=== PATIENT | male | born 1980 | race Caucasian/White ===

== ENCOUNTER → 2016-05-14 | Outpatient (CLI) | payer MEDICAID | LOC: WI 07:29 | PROVIDERS: ATTEND Nurse Practitioner Family | DX: N63 Unspecified lump in breast (principal) | CPT/HCPCS: 76642 ==

== ENCOUNTER 2016-05-17 00:10 | Emergency (ER) | payer MEDICAID ==
[2016-05-17 02:17] VITALS: BP 122/74
--- NOTE | 2016-05-17 04:10 | ER Document Report ---
Doctor's Note Notes: 05/17/16 04:09 The patient eloped before walked into the room. The nurse initially thought he had want to the bathroom the patient never returned. I never saw evaluate the patient. I never had an opportunity to speak with the patient.
== END 2016-05-17 04:00 | disposition left against medical advice (07) ==
LOC: ER 00:10
DX: Z53.21 Procedure and treatment not carried out due to patient leaving prior to being seen by health care provider (principal)

== ENCOUNTER → 2016-05-18 | Outpatient (CLI) | payer MEDICAID ==
[2016-05-18 11:34] LABS: ABSOLUTE BASOPHILS # (AUTO) 0.1 10^3/uL (0.0-0.2); ABSOLUTE EOSINOPHILS # (AUTO) 0.4 10^3/uL (0.0-0.6); ABSOLUTE LYMPHOCYTES (AUTO) 4.1 10^3/uL (0.5-4.7); ABSOLUTE MONOCYTES (AUTO) 1.2 10^3/uL (0.1-1.4); ABSOLUTE NEUT (AUTO) 7.2 10^3/uL (1.7-8.2); BASOPHILS % (AUTO) 0.5 % (0-2); HEMATOCRIT 41.8 % (37.9-51.0); HGB HCT DIFFERENCE 0.2; MEAN CORPUSCULAR HEMOGLOBIN 29.9 pg (27.0-33.4); MEAN CORPUSCULAR HGB CONC 33.5 g/dL (32.0-36.0); MEAN CORPUSCULAR VOLUME 89 fl (80-97); RED BLOOD COUNT 4.69 10^6/uL (4.35-5.55); RED CELL DISTRIBUTION WIDTH 13.7 % (11.5-14.0); SEGMENTED NEUTROPHILS % (AUTO) 55.5 % (42-78); WHITE BLOOD COUNT 12.9 10^3/uL (4.0-10.5)
[2016-05-18 11:53] LABS: ALANINE AMINOTRANSFERASE 18 U/L (21-72); ALBUMIN 4.3 g/dL (3.5-5.0); ALKALINE PHOSPHATASE 62 U/L (38-126); ANION GAP 11 (5-19); ASPARTATE AMINO TRANSFERASE 16 U/L (17-59); BILIRUBIN,TOTAL 0.5 mg/dL (0.2-1.3); BLOOD UREA NITROGEN 5 mg/dL (7-20); CARBON DIOXIDE 31 mmol/L (22-30); CHLORIDE 99 mmol/L (98-107); CREATININE RESULT 0.86 mg/dL (0.52-1.25); GLUCOSE 95 mg/dL (75-110); POTASSIUM 3.6 mmol/L (3.6-5.0); SODIUM 140.9 mmol/L (137-145); TOTAL PROTEIN 7.6 g/dL (6.3-8.2)
== END ==
LOC: LAB 11:15
PROVIDERS: ATTEND Nurse Practitioner Family
DX: Z00.00 Encounter for general adult medical examination without abnormal findings (principal); L72.3 Sebaceous cyst
CPT/HCPCS: 36415; 80053; 85025

== ENCOUNTER → 2017-08-09 | Outpatient (CLI) | payer MEDICAID ==
[2017-08-09 18:35] LABS: ABSOLUTE EOSINOPHILS # (AUTO) 0.2 10^3/uL (0.0-0.6); ABSOLUTE LYMPHOCYTES (AUTO) 3.5 10^3/uL (0.5-4.7); ABSOLUTE MONOCYTES (AUTO) 0.8 10^3/uL (0.1-1.4); ABSOLUTE NEUT (AUTO) 5.4 10^3/uL (1.7-8.2); BASOPHILS % (AUTO) 0.4 % (0-2); EOSINOPHILS % (AUTO) 2.2 % (0-6); HEMATOCRIT 41.3 % (37.9-51.0); MEAN CORPUSCULAR HEMOGLOBIN 29.9 pg (27.0-33.4); MEAN CORPUSCULAR HGB CONC 33.9 g/dL (32.0-36.0); MEAN CORPUSCULAR VOLUME 88 fl (80-97); MONOCYTES % (AUTO) 8.2 % (3-13); PLATELET COUNT 260 10^3/uL (150-450); RED BLOOD COUNT 4.68 10^6/uL (4.35-5.55); RED CELL DISTRIBUTION WIDTH 13.5 % (11.5-14.0); SEGMENTED NEUTROPHILS % (AUTO) 54.2 % (42-78); TOTAL CELLS COUNTED % (AUTO) 100 %
== END ==
LOC: OD 17:10
PROVIDERS: ATTEND Family Medicine
DX: R23.3 Spontaneous ecchymoses (principal)
CPT/HCPCS: 36415; 85025

== ENCOUNTER 2018-08-11 01:49 | Emergency (ER) | payer SELFPAY ==
[2018-08-11 01:57] VITALS: BP 197/91
== END 2018-08-11 02:55 | disposition left against medical advice (07) ==
LOC: ER 01:49
DX: Z53.21 Procedure and treatment not carried out due to patient leaving prior to being seen by health care provider (principal)

== ENCOUNTER 2018-08-14 06:29 | Emergency (ER) | payer SELFPAY ==
[2018-08-14] MEDS ORDERED: KETOROLAC TROMETHAMINE 10 MG TABLET PO ONE (07:35)
[2018-08-14] MEDS ORDERED: CYCLOBENZAPRINE HCL 10 MG TABLET PO ONE (07:35)
--- NOTE | 2018-08-14 10:27 | ER Document Report ---
ED General - General Chief Complaint: Headache Stated Complaint: BLOOD PRESSURE,HEADACHE Time Seen by Provider: 08/14/18 07:15 TRAVEL OUTSIDE OF THE [place] IN LAST 30 DAYS: No - HPI Notes: Patient is a 38-year-old male who presents to the emergency department for evaluation of a headache. He states it actually started about 3 days ago. He came to the emergency department be evaluated. He stated he was in the waiting room too long, but then his headache seemed to improve without any sort of intervention. He then left, had only a mild headache over the last few days. He states this morning he woke up and his headache was worse. It was to the level where it had brought him to the emergency department recently. He denies any visual changes. No difficulty seeing, speaking, swallowing. Moving all 4 extremities without difficulty. He denies any fevers. No sore throats. No trauma. He is also concerned that his blood pressure is high. He states it was high when he was checked last time. He does not have a primary care physician. Denies any chest pain or difficulty breathing. Still urinating without difficulty. - Related Data Allergies/Adverse Reactions: codeine [Codeine] Allergy (Verified 05/17/16 00:39) NSAIDS (Non-Steroidal Anti-Inflamma [Nsaids] Adverse Reaction (Intermediate, Verified 05/17/16 00:39) Amphetamine Aspartate * [From Adderall] Adverse Reaction (Verified 05/17/16 00:39) Muscle spasms amphetamine sulfate [From Adderall] Adverse Reaction (Verified 05/17/16 00:39) Muscle spasms dextroamphetamine [From Adderall] Adverse Reaction (Verified 05/17/16 00:39) Muscle spasms dairy Allergy (Uncoded 05/17/16 00:39) Past Medical History - General Information source: Patient - Social History Smoking Status: Current Every Day Smoker Frequency of alcohol use: Occasional Drug Abuse: None, Prescription drugs - Opiates, pills only Family History: Arthritis, CAD, CVA, DM, Hyperlipidemia, Hypertension, Malignancy, Thyroid Disfunction Patient has suicidal ideation: No Patient has homicidal ideation: No - Past Medical History Cardiac Medical History: Reports: Hx Hypercholesterolemia Denies: Hx Coronary Artery Disease, Hx Hypertension Pulmonary Medical History: Denies: Hx Asthma, Hx Tuberculosis Neurological Medical History: Reports: Hx Migraine. Denies: Hx Seizures Renal/ Medical History: Denies: Hx Peritoneal Dialysis GI Medical History: Reports: Hx Crohn's Disease, Hx Irritable Bowel Musculoskeletal Medical History: Reports Hx Musculoskeletal Trauma Psychiatric Medical History: Reports: Hx Attention Deficit Hyperactivity Disorder, Hx Depression Traumatic Medical History: Reports: Hx Fractures Past Surgical History: Reports: Hx Abdominal Surgery. Denies: Hx Pacemaker - Immunizations Immunizations up to date: Yes Hx Diphtheria, Pertussis, Tetanus Vaccination: Yes - 2006 Review of Systems - Review of Systems Constitutional: No symptoms reported EENT: No symptoms reported Cardiovascular: No symptoms reported Respiratory: No symptoms reported Gastrointestinal: No symptoms reported Genitourinary: No symptoms reported Musculoskeletal: Back pain - Chronic in nature, for which she takes Percocet he obtains off the street Skin: No symptoms reported Neurological/Psychological: No symptoms reported Physical Exam - Vital signs Vitals: Pulse Resp BP Pulse Ox 70 16 160/97 H 99 08/14/18 06:29 08/14/18 06:29 08/14/18 06:29 08/14/18 06:29 - Notes Notes: Vital signs reviewed, please refer to chart. Head is normocephalic, atraumatic. Pupils equal round, reactive to light. Oromucosa is moist. Pharynx is without erythema or exudate. Neck is without meningismus. Examination of the spine yields no midline tenderness or step-off. He has marked paraspinal musculature tenderness noted throughout the cervical spine, pain over the right first rib. This reproduces his headache pain. Heart is regular rate and rhythm. Lungs are clear to auscultation bilaterally. Abdomen is soft, nontender, normoactive bowel sounds throughout. Extremities without cyanosis, clubbing. Posterior calves are nontender. Peripheral pulses are equal. Skin is warm and dry. Patient is awake, alert, oriented x3. Cranial nerves II through XII are grossly intact without focal neurological deficits. Strength is +5-5 bilateral upper and lower extremities. Sensation is intact. Intact [id number], rapid altering movements, [id number]. Reflexes are symmetrical. - General General appearance: Appears well Course - Re-evaluation Re-evalutation: 08/14/18 10:25 Patient presents emergency department for evaluation of a headache. He has chronic back issues. His pain seems most consistent with a tension headache. He does not have any meningismus, no other signs or symptoms concerning for meningitis. He has a completely normal neurological exam. He was treated here with IM Toradol, Flexeril. Despite listing an allergy to NSAIDs via nursing, he denied any allergies to me. He tolerated the Toradol without difficulty. He actually had significant relief of his symptoms. I will go ahead and send him home with a prescription for Flexeril. He is advised to quit smoking. He is advised to stop using illicit drugs, he is told that rebound headaches are possible with the use of opiates. He voiced understanding to this. I explained to him that his blood pressure was mildly elevated, but he had no signs of endorgan damage. I was more concerned about what his blood pressure runs on a regular basis. He is told to keep track of that as well. I will give [facility] as well as our on-call medical physician. He is to return to the emergency department with worsening or new concerning symptoms of any sort. - Vital Signs Vital signs: Temp Pulse Resp BP Pulse Ox 98.1 F 70 16 160/97 H 99 08/14/18 07:34 08/14/18 06:29 08/14/18 06:29 08/14/18 06:29 08/14/18 06:29 Discharge - Discharge Clinical Impression: Elevated blood pressure reading without diagnosis of hypertension Tension type headache Qualifiers: Headache chronicity pattern: acute headache Intractability: not intractable Qualified Code(s): G44.209 - Tension-type headache, unspecified, not intractable Condition: Stable Disposition: HOME, SELF-CARE Instructions: Toradol Injection ([facility]), Tension Headache ([facility]) Additional Instructions: Take medication as prescribed. Watch for dizziness and drowsiness with the Flexeril. Moist heat to the painful area. Keep records of your blood pressures, bring this with you to primary care. Return to the emergency department with worsening or new concerning symptoms of any sort. Forms: Elevated Blood Pressure, Smoking Cessation Education
[2018-08-14 10:47] VITALS: BP 141/82
== END 2018-08-14 10:47 | disposition home or self-care (01) ==
LOC: ER 06:29
DX: G44.209 Tension-type headache, unspecified, not intractable (principal); R07.81 Pleurodynia; R03.0 Elevated blood-pressure reading, without diagnosis of hypertension; F17.200 Nicotine dependence, unspecified, uncomplicated; M54.9 Dorsalgia, unspecified; G89.29 Other chronic pain; Z86.69 Personal history of other diseases of the nervous system and sense organs; Z88.5 Allergy status to narcotic agent; Z91.018 Allergy to other foods
CPT/HCPCS: 99283; J3490

== ENCOUNTER 2019-12-24 10:29 | Emergency (ER) | payer MEDICAID ==
[2019-12-24] MEDS ORDERED: NORMAL SALINE 1000 ML 1,000 ML IV ONE (11:31)
[2019-12-24] MEDS ORDERED: FAMOTIDINE INJ/PF 20 MG/2 ML SDV IV ONE (11:32)
[2019-12-24] MEDS ORDERED: ONDANSETRON HCL INJ/PF 4 MG/2 ML SDV IV ONE (11:33)
--- NOTE | 2019-12-24 11:37 | ER Document Report ---
ED GI/ - General Chief Complaint: Abdominal Pain Stated Complaint: ABDOMINAL PAIN Time Seen by Provider: 12/24/19 11:11 Notes: 39-year-old man presents to the emergency department with a history of awakening at 2 AM with abdominal pain. He notes a episode of nausea with vomiting and cramping abdominal pain. He has a history of Crohn's disease. He also notices a mucousy bowel movement with unformed stool. He continues to have cramping abdominal pain states that he had one episode of vomiting prior to coming into the emergency department. The nausea has improved. He is presently on no medications for Crohn's disease. TRAVEL OUTSIDE OF THE [place] IN LAST 30 DAYS: No - Related Data Allergies/Adverse Reactions: codeine [Codeine] Allergy (Verified 05/17/16 00:39) NSAIDS (Non-Steroidal Anti-Inflamma [Nsaids] Adverse Reaction (Intermediate, Verified 05/17/16 00:39) Amphetamine Aspartate * [From Adderall] Adverse Reaction (Verified 05/17/16 00:39) Muscle spasms amphetamine sulfate [From Adderall] Adverse Reaction (Verified 05/17/16 00:39) Muscle spasms dextroamphetamine [From Adderall] Adverse Reaction (Verified 05/17/16 00:39) Muscle spasms dairy Allergy (Uncoded 05/17/16 00:39) Past Medical History - Social History Smoking Status: Current Every Day Smoker Frequency of alcohol use: Occasional Drug Abuse: Marijuana Family History: Arthritis, CAD, CVA, DM, Hyperlipidemia, Hypertension, Malignancy, Thyroid Disfunction - Past Medical History Cardiac Medical History: Reports: Hx Hypercholesterolemia Denies: Hx Coronary Artery Disease, Hx Hypertension Pulmonary Medical History: Denies: Hx Asthma, Hx Tuberculosis Neurological Medical History: Reports: Hx Migraine. Denies: Hx Seizures Renal/ Medical History: Denies: Hx Peritoneal Dialysis GI Medical History: Reports: Hx Crohn's Disease, Hx Irritable Bowel Musculoskeletal Medical History: Reports Hx Musculoskeletal Trauma Psychiatric Medical History: Reports: Hx Attention Deficit Hyperactivity Disorder, Hx Depression Traumatic Medical History: Reports: Hx Fractures Past Surgical History: Reports: Hx Abdominal Surgery. Denies: Hx Pacemaker - Immunizations Immunizations up to date: Yes Hx Diphtheria, Pertussis, Tetanus Vaccination: Yes - 2006 Review of Systems - Review of Systems Notes: Constitutional: Negative for fever. HENT: Negative for sore throat. Eyes: Negative for visual changes. Cardiovascular: Negative for chest pain. Respiratory: Negative for shortness of breath. Gastrointestinal: +abdominal pain, + nausea and vomiting Genitourinary: Negative for dysuria. Musculoskeletal: Negative for back pain. Skin: Negative for rash. Neurological: Negative for headaches, weakness or numbness. 10 point ROS negative except as marked above and in HPI. Physical Exam - Vital signs Vitals: Temp Pulse Resp BP Pulse Ox 97.8 F 100 18 119/65 100 12/24/19 10:51 12/24/19 10:51 12/24/19 10:51 12/24/19 10:51 12/24/19 10:51 - Notes Notes: PHYSICAL EXAMINATION: Physical Exam: General: Well-nourished well-developed in mild acute distress HEENT: NC/AT, pupils equal round and reactive to light, MM moist,nares clear, oropharynx clear, airway patent Neck: supple, no adenopathy, no masses. Good range of motion Lungs: clear, no wheezing, no rales no rhonchi CVS: Regular rate and rhythm no murmur gallop or rub Abdomen: Soft, hyperactive, mild tenderness in the periumbilical region, no guarding, no rebound, no masses. Ext: No edema, clubbing or cyanosis. Neuro: Alert and responsive, moving all 4 extremities on command, cranial nerves intact, no focal findings Skin: Intact no open lesions, no rash PSYCH: Normal mood, normal affect. Course - Re-evaluation Re-evalutation: 12/24/19 13:16 Patient was given IV fluids, Zofran, Decadron and Toradol, his symptoms are improved. X-ray revealed no free air, no dilated loops of bowel. I explained to the patient that he may be having a mild flareup of his Crohn's disease he has been discharged with a short course of steroidals, antiemetics, and antispasmodic. - Vital Signs Vital signs: Temp Pulse Resp BP Pulse Ox 97.8 F 100 18 119/65 100 12/24/19 10:51 12/24/19 10:51 12/24/19 10:51 12/24/19 10:51 12/24/19 10:51 - Laboratory Result Diagrams: 12/24/19 11:50 12/24/19 11:50 Laboratory results interpreted by me: 12/24/19 12/24/19 11:50 11:50 WBC 14.9 H Lymph % (Auto) 5.5 L Absolute Neuts (auto) 13.5 H Seg Neutrophils % 90.3 H Carbon Dioxide 31 H Glucose 124 H - Diagnostic Test Radiology reviewed: Image reviewed, Reports reviewed Radiology results interpreted by me: 12/24/19 13:16 X-ray abdomen: No free air and no elevated loops of bowel. Discharge - Discharge Clinical Impression: Abdominal pain Qualifiers: Abdominal location: generalized Qualified Code(s): R10.84 - Generalized abdominal pain Nausea & vomiting Qualifiers: Vomiting type: unspecified Vomiting Intractability: unspecified Qualified Code(s): R11.2 - Nausea with vomiting, unspecified Crohn's disease Qualifiers: Gastrointestinal tract location: unspecified location Digestive disease complication type: without complication Qualified Code(s): K50.90 - Crohn's disease, unspecified, without complications Condition: Good Disposition: HOME, SELF-CARE Instructions: Abdominal Pain ([facility]), Antinausea Medication ([facility]), Antispasmodics ([facility]), Crohn's Disease ([facility]) Additional Instructions: You are seen in the emergency department today with abdominal pain and nausea and vomiting. With your history of Crohn's disease a mild flare may be a possibility. You are given prescriptions for medications to help with the symptoms. Please take medications as prescribed. If your symptoms are worsening or if you have other concerns you may return to the emergency department for further evaluation and treatment HOME CARE INSTRUCTIONS & INFORMATION: Thank you for choosing us for your medical needs. We hope you're satisfied with the care you received. After you leave, you must properly care for your problem and, at the same time, observe its progress. Any condition can change. Some illnesses can change rapidly over hours or days. If your condition worsens, return to the Emergency Department or see your physician promptly. ABOUT YOUR X-RAYS AND EKG'S: If you had an EKG or X-rays taken, they have been read by the Emergency Physician. The X-rays and EKG's will also be read by a Radiologist or Flag Maker within 24 hours. If discrepancies are noted, you will be notified by telephone. Please be certain the ED has a correct telephone number & address where you can be reached. Also, realize that some fractures or abnormalities do not show up on initial X-rays. If your symptoms continue, see your physician. ABOUT YOUR LABORATORY TEST: If you had laboratory tests, the results have been reviewed by the Emergency Physician. Some test results (for example cultures) may not be available for several days. You will be contacted if any test result shows you need additional treatment. Please be certain the ED has a correct telephone number and address where you can be reached. ABOUT YOUR MEDICATIONS: You will receive instructions on how to take your medi cine on the prescription label you receive. Additional information may be provided by the Pharmacy. If you have questions afterwards, call the ED for clarification or further instructions. Some prescribed medications may cause drowsiness. Do not perform tasks such as driving a car or operating machinery without consulting your Pharmacist. If you feel you need a refill of pain medication, your condition will need re-evaluation. Please do not call for a refill of any medication. ABOUT YOUR SIGNATURE: Signature of this document acknowledges to followin. Understanding that you received emergency treatment and that you may be released before al medical problems are known or treated. Please be certain the ED has a correct phone number & address where you can be reached. 2. Acknowledgement that you will arrange for follow-up care as recommended. 3. Authorization for the Emergency Physician to provide information to your follow-up Physician in order to maximize your care. AT ANY TIME, IF YOUR SYMPTOMS CHANGE SIGNIFICANTLY OR WORSEN OR YOU DEVELOP NEW SYMPTOMS, RETURN TO THE EMERGENCY DEPARTMENT IMMEDIATELY FOR RE-EVALUATION. OUR GOAL IS TO PROVIDE EXCELLENT MEDICAL CARE! WE HOPE THAT WE HAVE MET YOUR EXPECTATIONS DURING YOUR EMERGENCY DEPARTMENT VISIT AND THAT YOU FEEL YOU HAVE RECEIVED EXCELLENT CARE! Prescriptions: Dicyclomine HCl [Bentyl 10 mg Capsule] 1 cap PO TID PRN #20 cap PRN Reason: Abdominal Cramping Prednisone [Deltasone 20 mg Tablet] 1 tab PO BID 5 Days #10 tablet Ondansetron [Zofran Odt 4 mg Tablet] 1 - 2 tab PO Q4H PRN #10 tab.rapdis PRN Reason: For Nausea/Vomiting
[2019-12-24 12:01] LABS: ABSOLUTE BASOPHILS # (AUTO) 0.1 10^3/uL (0.0-0.2); ABSOLUTE LYMPHOCYTES (AUTO) 0.8 10^3/uL (0.5-4.7); ABSOLUTE MONOCYTES (AUTO) 0.5 10^3/uL (0.1-1.4); ABSOLUTE NEUT (AUTO) 13.5 10^3/uL (1.7-8.2); BASOPHILS % (AUTO) 0.5 % (0-2); EOSINOPHILS % (AUTO) 0.1 % (0-6); HEMATOCRIT 41.7 % (37.9-51.0); HEMOGLOBIN 14.1 g/dL (13.5-17.0); LYMPHOCYTES % (AUTO) 5.5 % (13-45); MEAN CORPUSCULAR HEMOGLOBIN 31.1 pg (27.0-33.4); MEAN CORPUSCULAR HGB CONC 33.8 g/dL (32.0-36.0); MEAN CORPUSCULAR VOLUME 92 fl (80-97); MONOCYTES % (AUTO) 3.6 % (3-13); PLATELET COUNT 246 10^3/uL (150-450); RED BLOOD COUNT 4.53 10^6/uL (4.35-5.55); RED CELL DISTRIBUTION WIDTH 13.5 % (11.5-14.0); SEGMENTED NEUTROPHILS % (AUTO) 90.3 % (42-78); TOTAL CELLS COUNTED % (AUTO) 100 %; WHITE BLOOD COUNT 14.9 10^3/uL (4.0-10.5)
[2019-12-24 12:17] LABS: ALBUMIN 4.4 g/dL (3.5-5.0); ALKALINE PHOSPHATASE 60 U/L (38-126); ANION GAP 5 (5-19); ASPARTATE AMINO TRANSFERASE 20 U/L (17-59); BILIRUBIN,DIRECT 0.3 mg/dL (0.0-0.4); BILIRUBIN,TOTAL 0.4 mg/dL (0.2-1.3); BLOOD UREA NITROGEN 7 mg/dL (7-20); CALCIUM 9.4 mg/dL (8.4-10.2); CARBON DIOXIDE 31 mmol/L (22-30); CHLORIDE 103 mmol/L (98-107); GLUCOSE 124 mg/dL (75-110); POTASSIUM 4.5 mmol/L (3.6-5.0); TOTAL PROTEIN 7.2 g/dL (6.3-8.2)
--- NOTE | 2019-12-24 12:18 | RADIOLOGY REPORT (SQ) ---
EXAM DESCRIPTION: ABDOMEN 2 VIEWS IMAGES COMPLETED DATE/TIME: 12/24/2019 11:51 am REASON FOR STUDY: Nonspecific abdominal pain COMPARISON: None. NUMBER OF VIEWS: Two views. TECHNIQUE: Supine and erect/decubitus radiographic images of the abdomen acquired. LIMITATIONS: None. FINDINGS: FREE AIR: None. No abnormal gas collections. LUNG BASES: Clear. BOWEL GAS PATTERN: Nonobstructive pattern. No dilated loops or air fluid levels. CALCIFICATIONS: No suspicious calcifications. SOFT TISSUES: No gross mass or suggestion of organomegaly. HARDWARE: None in the abdomen. BONES: No acute fracture. No worrisome bone lesions. OTHER: No other significant finding. IMPRESSION: NO RADIOGRAPHIC EVIDENCE FOR ACUTE ABDOMINAL DISEASE. TECHNICAL DOCUMENTATION: JOB ID: [id number] [place]-72 2010 [employer]- All Rights Reserved Reading location - IP/workstation name: [email or web address]
[2019-12-24 13:20] LABS: AMORPHOUS SEDIMENT,URINE TRACE /HPF; APPEARANCE,URINE CLOUDY; BILIRUBIN,URINE NEGATIVE (NEGATIVE); COLOR,URINE YELLOW; GLUCOSE, URINE NEGATIVE (NEGATIVE); KETONES,URINE NEGATIVE (NEGATIVE); LEUKOCYTE ESTERASE,URINE NEGATIVE (NEGATIVE); NITRITE,URINE NEGATIVE (NEGATIVE); PROTEIN,URINE NEGATIVE (NEGATIVE); URINE SPECIFIC GRAVITY 1.018; UROBILINOGEN,URINE NEGATIVE mg/dL (<2.0)
[2019-12-24 13:32] VITALS: BP 120/74
== END 2019-12-24 13:30 | disposition home or self-care (01) ==
LOC: ER 10:29
DX: K50.90 Crohn's disease, unspecified, without complications (principal); R10.84 Generalized abdominal pain; R10.815 Periumbilic abdominal tenderness; R11.2 Nausea with vomiting, unspecified; F17.200 Nicotine dependence, unspecified, uncomplicated; F12.10 Cannabis abuse, uncomplicated; Z88.6 Allergy status to analgesic agent; Z88.5 Allergy status to narcotic agent
CPT/HCPCS: 99284; 96361; 96374; 96375; 36415; 83690; 85025; 80053; 81001; 74019; J2405; J7030; S0028

== ENCOUNTER 2020-04-01 23:23 | Emergency (ER) | payer MEDICAID ==
[2020-04-02] MEDS ORDERED: HYDROCODONE/ACETAMINOPHEN 5-325 MG TABLET PO ONE (00:17)
[2020-04-02] MEDS ORDERED: CEPHALEXIN 500 MG CAPSULE PO ONE (00:17)
[2020-04-02] MEDS ORDERED: DIPH/PERTUSS(ACELL)/TETANUS VAC/PF 0.5 ML SYR (>=10YO) IM ONE ×2 (00:17→06:56)
--- NOTE | 2020-04-02 00:20 | ER Document Report ---
ED Medical Screen (RME) - General Stated Complaint: HAND INJURY,HAND BLEEDING Time Seen by Provider: 04/02/20 00:12 Mode of Arrival: Ambulatory TRAVEL OUTSIDE OF THE [place] IN LAST 30 DAYS: No - HPI Patient complains to provider of: Right thumb and middle finger injury Onset: Just prior to arrival Notes: 04/02/20 00:18 Patient here with injury to the right thumb and middle finger. He states that he was using a router when the board was pulled and his hand was taken into the router. Complains of an injury to the right thumb and the middle finger. Un sure of his last tetanus. No fevers. No numbness, tingling, weakness. Bleeding controlled. Exam: No distress, nontoxic appearing. Lungs clear and equal throughout. Heart sounds normal. Missing tissue noted to the distal aspect of the thumb with injury to the thumb nail. Bleeding controlled. Superficial lacerations to the distal aspect of the right middle finger. Bleeding controlled. An initial examination was made on the patient as part of the triage process, and it was determined a more comprehensive evaluation was necessary. Initial ordered and patient was transferred to another provider in the ED who assumed care and finished evaluation and plan. - Related Data Allergies/Adverse Reactions: codeine [Codeine] Allergy (Verified 05/17/16 00:39) NSAIDS (Non-Steroidal Anti-Inflamma [Nsaids] Adverse Reaction (Intermediate, Verified 05/17/16 00:39) Amphetamine Aspartate * [From Adderall] Adverse Reaction (Verified 05/17/16 00:39) Muscle spasms amphetamine sulfate [From Adderall] Adverse Reaction (Verified 05/17/16 00:39) Muscle spasms dextroamphetamine [From Adderall] Adverse Reaction (Verified 05/17/16 00:39) Muscle spasms dairy Allergy (Uncoded 05/17/16 00:39) Past Medical History - Social History Family history: CAD, CVA, DM, Hyperlipidemia, Hypertension, Malignancy - Past Medical History Cardiac Medical History: Reports: Hx Hypercholesterolemia Denies: Hx Coronary Artery Disease, Hx Hypertension Pulmonary Medical History: Denies: Hx Asthma, Hx Tuberculosis Neurological Medical History: Reports: Hx Migraine. Denies: Hx Seizures Renal/ Medical History: Denies: Hx Peritoneal Dialysis GI Medical History: Reports: Hx Crohn's Disease, Hx Irritable Bowel Musculoskeltal Medical History: Reports Hx Musculoskeletal Trauma Psychiatric Medical History: Reports: Hx Attention Deficit Hyperactivity Disorder, Hx Depression Traumatic Medical History: Reports: Hx Fractures Past Surgical History: Reports: Hx Abdominal Surgery. Denies: Hx Pacemaker - Immunizations Immunizations up to date: Yes Hx Diphtheria, Pertussis, Tetanus Vaccination: Yes - 2006 Physical Exam - Vital signs Vitals: Temp Pulse BP Pulse Ox 98.5 F 76 130/76 H 100 04/01/20 23:39 04/01/20 23:39 04/01/20 23:39 04/01/20 23:39 Course - Vital Signs Vital signs: Temp Pulse Resp BP Pulse Ox 98.5 F 76 130/76 H 100 04/01/20 23:39 04/01/20 23:39 04/01/20 23:39 04/01/20 23:39
--- NOTE | 2020-04-02 01:21 | RADIOLOGY REPORT (SQ) ---
Right hand radiographs: 04/02/2020 12:18 AM [facility] TECHNIQUE: AP, lateral, oblique images of the right hand were obtained. HISTORY: 39-year-old patient with history of right hand pain, trauma at the right first digit and third digit. COMPARISON: None available FINDINGS: The carpal arcs appear to be intact. There is soft tissue injury at the right first and third digit. There are punctate areas of increased density within the soft tissues over the dorsal aspect of the distal third digit at the proximal phalanx. These may represent retained foreign bodies. There are no findings to suggest an acute fracture or subluxation within the right hand. IMPRESSION: There are no findings to suggest an acute fracture or subluxation within the right hand. There are punctate areas of increased density within the soft tissues over the dorsal aspect of the distal third digit at the proximal phalanx. These may represent retained foreign bodies.
--- NOTE | 2020-04-02 07:04 | ER Document Report ---
ED General - General Chief Complaint: Laceration Stated Complaint: HAND INJURY,HAND BLEEDING Time Seen by Provider: 04/02/20 00:12 Primary Care Provider: LOGAN DUNCAN PA-C [Primary Care Provider] - Follow up as needed Mode of Arrival: Ambulatory TRAVEL OUTSIDE OF THE [place] IN LAST 30 DAYS: No - HPI Notes: Patient was working with a router with a short work piece. He allowed the work piece to go backwards a little bit to try and smooth it out and it caught in the router blade dragging his right hand into the blade. He sustained a laceration to the ulnar aspect of the distal phalanx of his right thumb and to the dorsum of his right long finger. Denies any other injuries. While he has been waiting through the physical medicine teacher hours he was given cephalexin 500 mg in some medication for pain. A Tdap update was ordered but has not been given yet so I reordered it. He denies any numbness or tingling distally. He is otherwise in his usual state of health. He is not on any blood thinners. - Related Data Allergies/Adverse Reactions: codeine [Codeine] Allergy (Verified 04/02/20 02:12) NSAIDS (Non-Steroidal Anti-Inflamma [Nsaids] Adverse Reaction (Intermediate, Verified 04/02/20 02:12) Amphetamine Aspartate * [From Adderall] Adverse Reaction (Verified 04/02/20 02:12) Muscle spasms amphetamine sulfate [From Adderall] Adverse Reaction (Verified 04/02/20 02:12) Muscle spasms dextroamphetamine [From Adderall] Adverse Reaction (Verified 04/02/20 02:12) Muscle spasms dairy Allergy (Uncoded 05/17/16 00:39) Past Medical History - Social History Smoking Status: Current Every Day Smoker Frequency of alcohol use: None Drug Abuse: None Family History: Arthritis, CAD, CVA, DM, Hyperlipidemia, Hypertension, Malignancy, Thyroid Disfunction - Medical History Medical History: Other Notes: Past medical history as documented in electronic health record is reviewed. - Past Medical History Cardiac Medical History: Reports: Hx Hypercholesterolemia Denies: Hx Coronary Artery Disease, Hx Hypertension Pulmonary Medical History: Denies: Hx Asthma, Hx Tuberculosis Neurological Medical History: Reports: Hx Migraine. Denies: Hx Seizures Renal/ Medical History: Denies: Hx Peritoneal Dialysis GI Medical History: Reports: Hx Crohn's Disease, Hx Irritable Bowel Musculoskeletal Medical History: Reports Hx Musculoskeletal Trauma Psychiatric Medical History: Reports: Hx Attention Deficit Hyperactivity Disorder, Hx Depression Traumatic Medical History: Reports: Hx Fractures Past Surgical History: Reports: Hx Abdominal Surgery. Denies: Hx Pacemaker - Immunizations Immunizations up to date: Yes Hx Diphtheria, Pertussis, Tetanus Vaccination: Yes - 2006 Review of Systems - Review of Systems Notes: Constitutional: No fever or chills. Musculoskeletal: Per present illness. Skin: Per present illness. Physical Exam - Vital signs Vitals: Temp Pulse BP Pulse Ox 98.5 F 76 130/76 H 100 04/01/20 23:39 04/01/20 23:39 04/01/20 23:39 04/01/20 23:39 - Notes Notes: General: This is a slender well-developed gentleman in no acute distress. Vital signs and nursing chief complaint are reviewed. Right hand: Examination the right hand reveals 2 areas of injuries. Along the dorsum of the right long finger the patient has some sort of shredded macerated superficial lacerations that are laying together quite well. Hemostasis is already been achieved. These do not require suture closure. He has good extensor tendon and flexor tendon function. Sensation is intact to light touch. I examination of the right thumb reveals a 1.5 cm soft tissue deficit along the ulnar aspect of the distal phalanx extending into the nailbed. The nail itself is split in several dimensions but is not bleeding. It is well attached. The soft tissue defect does not expose any bone. There is sufficient tissue missing that this cannot be repaired primarily. Flexor and extensor tendon function are intact. Sensation is intact to light touch. Full in all digits. The patient is uninjured above the wrist. Course - Re-evaluation Re-evalutation: 04/02/20 07:02 I reordered the patient's Tdap update to allow the nursing staff to go ahead and give it. I spoke with Dr. Colorado from orthopedics regarding the patient's injury. I described in detail and reviewed the x-ray findings with him. He recommended going ahead and managing it with Xeroform gauze. He will see the patient in the office within the next couple of days for definitive care. All of this was explained to the patient and he was very satisfied with the outcome. - Vital Signs Vital signs: Temp Pulse Resp BP Pulse Ox 98.5 F 53 L 136/85 H 99 04/01/20 23:39 04/02/20 04:16 04/02/20 04:16 04/02/20 04:16 - Laboratory Results Critical Laboratory Results Reviewed: No Critical Results - Radiology Results Radiology Results Interpreted: 04/02/20 07:02 Hand X-Ray 04/02/20 00:17 IMPRESSION: There are no findings to suggest an acute fracture or subluxation within the right hand. There are punctate areas of increased density within the soft tissues over the dorsal aspect of the distal third digit at the proximal phalanx. These may represent retained foreign bodies. Critical Radiology Results Reviewed: No Critical Results Discharge - Discharge Clinical Impression: Avulsion laceration right thumb, Superficial lacerations of the right mid Condition: Good Disposition: HOME, SELF-CARE Instructions: Antibiotic Ointment Protection ([facility]), Laceration Care ([facility]), Oral Narcotic Medication ([facility]), Prophylactic Antibiotic ([facility]) Additional Instructions: Keep your dressings clean and dry. You have been referred to Dr. Colorado. Please call the office this morning and tell them you were in the emergency department, your case was discussed with the doctor, and you are to have an appointment within the next 48 hours to see him in the office to evaluate your wounds. Prescriptions for cephalexin, an antibiotic, and hydrocodone/acetaminophen, a pain medicine have been sent to your pharmacy for you. Please pick these up and take them according to label directions. Return to the emergency department if any concerning symptoms develop. Prescriptions: Cephalexin Monohydrate [Keflex 500 mg Capsule] 500 mg PO Q12H 5 Days #10 capsule Hydrocodone/Acetaminophen [Aulander 5-325 mg Tablet] 1 - 2 tab PO Q6H PRN #12 tablet PRN Reason: Pain Referrals: LOGAN DUNCAN PA-C [Primary Care Provider] - Follow up as needed VENTURA COLORADO DO [ACTIVE STAFF] - Follow up as needed
[2020-04-02 07:13] VITALS: BP 124/86
== END 2020-04-02 07:41 | disposition home or self-care (01) ==
LOC: ER 23:23
DX: S61.411A Laceration without foreign body of right hand, initial encounter (principal); W45.8XXA Other foreign body or object entering through skin, initial encounter; Z79.899 Other long term (current) drug therapy; Z88.8 Allergy status to other drugs, medicaments and biological substances; F17.200 Nicotine dependence, unspecified, uncomplicated; Z23 Encounter for immunization
CPT/HCPCS: 90471; 90715; 99284